=== PATIENT | female | born 1960 | race Hispanic/Latino ===

== ENCOUNTER 2018-10-01 20:02 | Emergency (ER) | payer SELFPAY ==
[2018-10-01] MEDS ORDERED: FAMOTIDINE 20 MG/2 ML VIAL IV ONE (20:28)
[2018-10-01] MEDS ORDERED: METHYLPREDNISOLONE 125 MG INJ ONE (20:28)
--- NOTE | 2018-10-01 20:41 | ER ---
Nurse's Notes [facility] Name: Maricarmen Guallpa Age: 58 yrs Sex: Female : 1960 Arrival Date: 10/01/2018 Time: 20:05 Bed 14 Private MD: None, None Diagnosis: Urticaria Presentation: 10/01 20:12 Presenting complaint: Patient states: We ate at a [place] restaurant earlier and all of tl2 a sudden she broke out in hives. Denies breathing difficulty or abdominal pain. Reports severe itching. Hives present on back and upper thighs and arms. Transition of care: patient was not received from another setting of care. Onset: The symptoms/episode began/occurred acutely. Anaphylaxis evaluation, no signs or symptoms of anaphylaxis were noted. Onset of symptoms was October 01, 2018 at 19:30. Risk Assessment: Do you want to hurt yourself or someone else? Patient reports no desire to harm self or others. Initial Sepsis Screen: Does the patient meet any 2 criteria? No. Patient's initial sepsis screen is negative. Does the patient have a suspected source of infection? No. Patient's initial sepsis screen is negative. Care prior to arrival: Medication(s) given: 25 mg Benadryl. 20:12 Method Of Arrival: Ambulatory tl2 20:12 Acuity: LEANNE 3 tl2 Triage Assessment: 20:14 General: Appears in no apparent distress. uncomfortable. Derm: Rash noted that is tl2 urticaria. Historical: - Allergies: 20:14 No Known Allergies; tl2 - Home Meds: 20:14 blood thinner [Active]; tl2 - PMHx: 20:14 Myocardial infarction; CVA; Atrial Fib; tl2 - Immunization history:: Adult Immunizations up to date. - Social history:: Smoking status: Patient/guardian denies using tobacco. - Ebola Screening: : No symptoms or risks identified at this time. Screenin:15 Abuse screen: Denies threats or abuse. Nutritional screening: No deficits noted. tl2 Tuberculosis screening: No symptoms or risk factors identified. Fall Risk None identified. Assessment: 20:17 General: Appears in no apparent distress. uncomfortable, Behavior is calm, cooperative, cc3 appropriate for age. Pain: Denies pain. Neuro: Level of Consciousness is awake, alert, obeys commands, Oriented to person, place, time, situation, Appropriate for age. Cardiovascular: Denies chest pain. Respiratory: Airway is patent Respiratory effort is even, unlabored, Respiratory pattern is regular, symmetrical, Breath sounds are clear bilaterally. GI: Abdomen is round non-distended. : No signs and/or symptoms were reported regarding the genitourinary system. EENT: No signs and/or symptoms were reported regarding the EENT system. Derm: Rash noted that is urticaria, on the neck, back and upper limbs. Musculoskeletal: Circulation, motion, and sensation intact. Range of motion: intact in all extremities. 21:00 Reassessment: Patient appears in no apparent distress at this time. Patient and/or cc3 family updated on plan of care and expected duration. Pain level reassessed. Patient is alert, oriented x 3, equal unlabored respirations, skin warm/dry/pink. SANJEEV Iqbal discharged the patient home with prescription given. IV cannula removed and patient left ER vitally stable and ambulatory with her daughter. Patient states feeling better. Patient states symptoms have improved. Vital Signs: 20:14 BP 165 / 76; Pulse 97; Resp 20; Temp 98(TE); Pulse Ox 100% on R/A; Weight 77.11 kg; tl2 Height 5 ft. 5 in. (165.10 cm); Pain 0/10; 20:45 BP 135 / 72; Pulse 84; Resp 18 S; Pulse Ox 100% on R/A; cc3 20:14 Body Mass Index 28.29 (77.11 kg, 165.10 cm) tl2 ED Course: 20:05 Patient arrived in ED. mr 20:05 None, None is Private Physician. mr 20:07 Rasheed Batres NP is PHCP. pm1 20:07 Juan Francisco Gutierrez MD is Attending Physician. pm1 20:13 Triage completed. tl2 20:14 Arm band placed on right wrist. tl2 20:17 Reina Lino is Primary Nurse. cc3 20:17 Patient has correct armband on for positive identification. Bed in low position. Call cc3 light in reach. Side rails up X 1. Pulse ox on. NIBP on. 21:00 No provider procedures requiring assistance completed. IV discontinued, intact, cc3 bleeding controlled, No redness/swelling at site. Pressure dressing applied. Administered Medications: 20:20 Drug: SOLU-Medrol 125 mg Route: IVP; Site: right hand; cc3 20:35 Follow up: Response: No adverse reaction cc3 20:23 Drug: Pepcid 20 mg Route: IVP; Site: right hand; cc3 20:35 Follow up: Response: No adverse reaction cc3 Outcome: 20:40 Discharge ordered by MD. pm1 21:00 Discharged to home ambulatory, with family. cc3 21:00 Condition: stable 21:00 Discharge instructions given to patient, family, Instructed on discharge instructions, follow up and referral plans. medication usage, Demonstrated understanding of instructions, follow-up care, medications, Prescriptions given X 2. 21:08 Patient left the ED. cc3 Signatures: Paty Blackwood Patrick, NP [employer] pm1 Nataliia Kaur RN RN tl2 Reina Lino cc3
--- NOTE | 2018-10-01 20:41 | EDPHYS ---
Physician Documentation [facility] Name: Maricarmen Guallpa Age: 58 yrs Sex: Female : 1960 Arrival Date: 10/01/2018 Time: 20:05 Bed 14 Private MD: None, None ED Physician Juan Francisco Gutierrez HPI: 10/01 20:09 This 58 yrs old Female presents to ER via Unassigned with complaints of pm1 Allergic Reaction. 20:09 The patient presents with itching, rash, that is diffuse. Onset: The symptoms/episode pm1 began/occurred just prior to arrival. Associated signs and symptoms: Pertinent positives: hives, Pertinent negatives: abdominal pain, chest pain, dysphagia, fever, nausea, shortness of breath, vomiting. Possible causes: Ate for the first time at [employer]. At home the patient or guardian has treated the symptoms with Benadryl, 50 mg PO. Severity of symptoms: in the emergency department the symptoms are worse. The patient has not experienced similar symptoms in the past. The patient has not recently seen a physician. Historical: - Allergies: 20:14 No Known Allergies; tl2 - Home Meds: 20:14 blood thinner [Active]; tl2 - PMHx: 20:14 Myocardial infarction; CVA; Atrial Fib; tl2 - Immunization history:: Adult Immunizations up to date. - Social history:: Smoking status: Patient/guardian denies using tobacco. - Ebola Screening: : No symptoms or risks identified at this time. ROS: 20:09 Constitutional: Negative for fever, chills, and weight loss, Eyes: Negative for injury, pm1 pain, redness, and discharge, ENT: Negative for injury, pain, and discharge, Neck: Negative for injury, pain, and swelling, Cardiovascular: Negative for chest pain, palpitations, and edema, Respiratory: Negative for shortness of breath, cough, wheezing, and pleuritic chest pain, Abdomen/GI: Negative for abdominal pain, nausea, vomiting, diarrhea, and constipation, Back: Negative for injury and pain, : Negative for injury, bleeding, discharge, and swelling, MS/Extremity: Negative for injury and deformity. 20:09 Neuro: Negative for headache, weakness, numbness, tingling, and seizure. 20:09 Skin: Positive for rash, diffusely. Exam: 20:09 Constitutional: This is a well developed, well nourished patient who is awake, alert, pm1 and in no acute distress. Head/Face: Normocephalic, atraumatic. Eyes: Pupils equal round and reactive to light, extra-ocular motions intact. Lids and lashes normal. Conjunctiva and sclera are non-icteric and not injected. Cornea within normal limits. Periorbital areas with no swelling, redness, or edema. ENT: Nares patent. No nasal discharge, no septal abnormalities noted. Tympanic membranes are normal and external auditory canals are clear. Oropharynx with no redness, swelling, or masses, exudates, or evidence of obstruction, uvula midline. Mucous membranes moist. Neck: Trachea midline, no thyromegaly or masses palpated, and no cervical lymphadenopathy. Supple, full range of motion without nuchal rigidity, or vertebral point tenderness. No Meningismus. Chest/axilla: Normal chest wall appearance and motion. Nontender with no deformity. No lesions are appreciated. Cardiovascular: Regular rate and rhythm with a normal S1 and S2. No gallops, murmurs, or rubs. Normal PMI, no JVD. No pulse deficits. Respiratory: Lungs have equal breath sounds bilaterally, clear to auscultation and percussion. No rales, rhonchi or wheezes noted. No increased work of breathing, no retractions or nasal flaring. Abdomen/GI: Soft, non-tender, with normal bowel sounds. No distension or tympany. No guarding or rebound. No evidence of tenderness throughout. Back: No spinal tenderness. No costovertebral tenderness. Full range of motion. 20:09 Skin: Appearance: normal except for affected area, consistent with urticaria. Vital Signs: 20:14 BP 165 / 76; Pulse 97; Resp 20; Temp 98(TE); Pulse Ox 100% on R/A; Weight 77.11 kg; tl2 Height 5 ft. 5 in. (165.10 cm); Pain 0/10; 20:45 BP 135 / 72; Pulse 84; Resp 18 S; Pulse Ox 100% on R/A; cc3 20:14 Body Mass Index 28.29 (77.11 kg, 165.10 cm) tl2 MDM: 20:07 Patient medically screened. pm1 20:39 Data reviewed: vital signs. Data interpreted: Pulse oximetry: on room air is 100 %. pm1 Interpretation: normal. Counseling: I had a detailed discussion with the patient and/or guardian regarding: the historical points, exam findings, and any diagnostic results supporting the discharge/admit diagnosis, the need for outpatient follow up, to return to the emergency department if symptoms worsen or persist or if there are any questions or concerns that arise at home. 10/01 20:09 Order name: IV Saline Lock; Complete Time: 20:17 pm1 Administered Medications: 20:20 Drug: SOLU-Medrol 125 mg Route: IVP; Site: right hand; cc3 20:35 Follow up: Response: No adverse reaction cc3 20:23 Drug: Pepcid 20 mg Route: IVP; Site: right hand; cc3 20:35 Follow up: Response: No adverse reaction cc3 Disposition: 10/01/18 20:40 Discharged to Home. Impression: Urticaria. - Condition is Stable. - Discharge Instructions: Food Allergy, Hives. - Prescriptions for Pepcid 20 mg Oral Tablet - take 1 tablet by ORAL route every 12 hours for 10 days; 20 tablet. Medrol (Raúl) 4 mg Oral Tablets, Dose Pack - take 1 tablet by ORAL route as directed - follow package instructions; 1 packet. - Medication Reconciliation Form, Thank You Letter form. - Follow up: Emergency Department; When: As needed; Reason: Worsening of condition. Follow up: Private Physician; When: 2 - 3 days; Reason: Recheck today's complaints, Continuance of care, Re-evaluation by your physician. - Problem is new. - Symptoms have improved. Addendum: 10/03/2018 21:01 Co-signature as Attending Physician, Juan Franicsco Gutierrez MD Available for consultation at p s1 all times . Signatures: Rasheed Batres NP [employer] pm1 Nataliia Kaur RN RN tl2 Juan Francisco Gutierrez MD MD ps1 Reina Lino cc3 Corrections: (The following items were deleted from the chart) 10/01 21:08 20:40 10/01/2018 20:40 Discharged to Home. Impression: Urticaria. Condition is Stable. cc3 Forms are Medication Reconciliation Form, Thank You Letter, Antibiotic Education, Prescription Opioid Use. Follow up: Emergency Department; When: As needed; Reason: Worsening of condition. Follow up: Private Physician; When: 2 - 3 days; Reason: Recheck today's complaints, Continuance of care, Re-evaluation by your physician. Problem is new. Symptoms have improved. pm1
== END 2018-10-01 21:08 | disposition home or self-care (01) ==
LOC: ER 20:02
DX: L50.9 Urticaria, unspecified (principal); I48.91 Unspecified atrial fibrillation; I25.2 Old myocardial infarction; Z79.01 Long term (current) use of anticoagulants; Z86.73 Personal history of transient ischemic attack (TIA), and cerebral infarction without residual deficits
CPT/HCPCS: 96374; 96375; 99283; J2930